=== PATIENT | female | born 1975 | race Caucasian/White ===

== ENCOUNTER 2017-08-24 05:39 | Day surgery (SDC) | payer BC ==
[2017-08-23 12:18] VITALS: BMI 28.3
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
[2017-08-24] MEDS ORDERED: Thrombin 5000 UNITS/5 ML VIAL ONE (06:20)
[2017-08-24] MEDS ORDERED: CEFAZOLIN/Water 2 GM/20 ML SYRINGE ONE ×2 (06:20→10:33)
[2017-08-24] MEDS ORDERED: Famotidine/PF 20 mg/2ml Vial ONE (06:27)
[2017-08-24] MEDS ORDERED: Scopolamine 1.5 mg/72 hour Patch ONE (06:27)
[2017-08-24] MEDS ORDERED: Promethazine HCl 25 MG/ML VIAL ONE (06:46)
[2017-08-24] MEDS ORDERED: Phenylephrine 10 MG/NS 250 ML 0 ML ONE (06:46)
[2017-08-24] MEDS ORDERED: Midazolam HCl 2 mg/2 ml Vial ONE (06:48)
[2017-08-24] MEDS ORDERED: Fentanyl 250 MCG/5 ML VIAL ONE (06:59)
[2017-08-24] MEDS ORDERED: Promethazine HCl 25 MG/ML VIAL SLOW IVP PRN (07:52)
[2017-08-24] MEDS ORDERED: Promethazine HCl 25 MG/ML VIAL IM PRN (07:52)
[2017-08-24] MEDS ORDERED: Meperidine HCl/PF 25 MG/ML VIAL SLOW IVP PRN (07:52)
[2017-08-24] MEDS ORDERED: Ondansetron HCl/PF 4 MG/2 ML Vial IVP PRN (07:52)
[2017-08-24] MEDS ORDERED: HYDROmorphone 2 MG/ML VIAL SLOW IVP PRN (07:52)
[2017-08-24] MEDS ORDERED: SUGAMMADEX SODIUM 200 MG/2 ML VIAL ONE (08:26)
[2017-08-24] MEDS ORDERED: Fentanyl 100 MCG/2 ML VIAL ONE ×2 (09:11→09:36)
[2017-08-24] MEDS ORDERED: Morphine 4 MG/ML VIAL ONE (09:51)
--- NOTE | 2017-08-24 10:45 | OP ---
DATE OF PROCEDURE: 08/24/2017 SURGEON: Ovidio Saez M.D. [address] FREIGHT: Bernard Mason PA-C. INDICATION: Pain. DIAGNOSIS: Cervical radiculopathy. PROCEDURE PERFORMED: Anterior cervical discectomy and fusion C6-C7. ANESTHESIA: General. TECHNIQUE: The patient was brought into the operating room and placed under general anesthesia. She was placed on the table in a supine position. A transverse incision was planned over the lateral as pect of the neck on the right. After prepping and draping and after an appropriate operative pause, the incision was created. The underlying platysma muscle was identified and incised. A blunt tissue plane anterior to the sternocleidomastoid muscle was used to gain access to the prevertebral space. Self-retaining retractors were placed in the wound for optimal exposure. After confirming the appro priate location with the C-arm fluoroscopy, an annulotomy was performed in the C6-C7 disk space. All disk material as well as anterior and posterior osteophytes were removed. After complete decompress ion C6-C7 segment, a 7 mm lordotic PEEK cage packed with allograft and autograft material was placed within the interbody space. An anterior cervical plate was then fashioned in the front of the spine and secured with a total of 4 fixed screws. Midline and lateral structures were inspected and found to be free from significant trauma. The wound was irrigated. Hemostasis was maintained throughout. The wound was then closed in anatomic layers and a pressure dressing was applied. There were no kno wn procedural complications.
[2017-08-24] MEDS ORDERED: Vecuronium 10 MG VIAL ONE (14:57)
[2017-08-24] MEDS ORDERED: Lidocaine 1% PF 5 ML VIAL ONE (14:57)
[2017-08-24] MEDS ORDERED: Ondansetron HCl/PF 4 MG/2 ML Vial ONE (14:57)
[2017-08-24] MEDS ORDERED: Naloxone HCl 0.4 mg/ml Vial ONE (14:57)
[2017-08-24] MEDS ORDERED: Dexamethasone 20 MG/5 ML VIAL ONE (14:57)
[2017-08-24] MEDS ORDERED: Metoclopramide HCl 10 MG/2 ML VIAL ONE (14:57)
[2017-08-24] MEDS ORDERED: Glycopyrrolate 0.2 MG/ML 5 ML SYRINGE ONE (14:57)
[2017-08-24] MEDS ORDERED: Propofol 200 MG/20 ML VIAL ONE (14:57)
== END 2017-08-24 11:11 | disposition home or self-care (01) ==
LOC: SDC 05:39
PROVIDERS: ATTEND Neurological Surgery
PROC: 0RG10A0 Fusion of Cervical Vertebral Joint with Interbody Fusion Device, Anterior Approach, Anterior Column, Open Approach (ICD-10-PCS; principal; 2017-08-24)
PROC: 0RT30ZZ Resection of Cervical Vertebral Disc, Open Approach (ICD-10-PCS; principal; 2017-08-24)
DX: M50.123 Cervical disc disorder at C6-C7 level with radiculopathy (principal); M51.27 Other intervertebral disc displacement, lumbosacral region; R20.8 Other disturbances of skin sensation; G43.909 Migraine, unspecified, not intractable, without status migrainosus; Z79.899 Other long term (current) drug therapy; Z91.018 Allergy to other foods; Z88.5 Allergy status to narcotic agent; Z90.49 Acquired absence of other specified parts of digestive tract; Z98.890 Other specified postprocedural states
CPT/HCPCS: 76001; 96374; C1713; J0131; J1100; J2001; J2250; J2270; J2310; J2405; J2550; J2704; J2765; J3010; S0028